=== PATIENT | female | born 2000 | race Caucasian/White ===

== ENCOUNTER → 2020-07-31 14:57 | Outpatient (BNVA) | payer OTHER, SELFPAY | PROVIDERS: Visit Provider Advanced Practice Midwife ==

== ENCOUNTER 2021-04-29 21:36 | Emergency (ER) | payer MEDICAID, SELFPAY ==
--- NOTE | ~2021-04-29 | XR_ITS ---
EXAMINATION: 1. RADIOGRAPHS RIGHT ANKLE 2. RADIOGRAPHS RIGHT FOOT CLINICAL INFORMATION: Pain after rolling ankle COMPARISON: None TECHNIQUE: 3 views of the right ankle and 3 views of the right foot were obtained. FINDINGS: Visualized portion of the distal tibia and fibula demonstrate no fracture. Ankle mortise is maintained. No focal soft tissue swelling of the ankle. No gross ankle joint effusion. Bones of the midfoot are well aligned. No tarsal, metatarsal or phalangeal fracture. No focal soft tissue swelling of the foot. No appreciable degenerative changes. XR/XR ankle RT min 3V IMPRESSION: Unremarkable radiographs of the right ankle and foot.
--- NOTE | ~2021-04-29 | XR_ITS ---
EXAMINATION: 1. RADIOGRAPHS RIGHT ANKLE 2. RADIOGRAPHS RIGHT FOOT CLINICAL INFORMATION: Pain after rolling ankle COMPARISON: None TECHNIQUE: 3 views of the right ankle and 3 views of the right foot were obtained. FINDINGS: Visualized portion of the distal tibia and fibula demonstrate no fracture. Ankle mortise is maintained. No focal soft tissue swelling of the ankle. No gross ankle joint effusion. Bones of the midfoot are well aligned. No tarsal, metatarsal or phalangeal fracture. No focal soft tissue swelling of the foot. No appreciable degenerative changes. XR/XR foot RT min 3V IMPRESSION: Unremarkable radiographs of the right ankle and foot.
[2021-04-29 22:02] VITALS: BP 130/78; PULSE 88; RESP 18; TEMP 36.4; O2SAT 99; BMI 26.5
[2021-04-29] MEDS: Ibuprofen 600 MG TABLET PO (22:38)
--- NOTE | 2021-04-29 23:04 | ED.LOWEXIN ---
HPI - Extremity Injury (Lower) General Chief Complaint: Extremity Injury, Lower Stated Complaint: broken foot? Time Seen by Provider: 04/29/21 22:45 Source: patient Mode of arrival: ambulatory Limitations: no limitations History of Present Illness HPI Narrative: 20 yold female presents to the ED for right ankle pain after running up a hill with his son and tripping. patient states when she twisted her right ankle she heard a pop. patient denies hitting head or falling to the ground. Related Data Previous Rx's Medication Instructions Recorded medroxyprogesterone 150 mg/mL 150 mg IM Q12W #1 ml 07/31/20 intramuscular suspension (Depo-Provera) naproxen 500 mg tablet 500 mg PO BID PRN 10 Days #20 tab 04/29/21 Allergies Allergy/AdvReac Type Severity Reaction Status Date / Time No Known Allergies Allergy Verified 07/31/20 14:58 [No Known Allergies*] Review of Systems Review of Systems: right ankle pain. Yes all other systems are reviewed and are negative [facility] Past Medical History Medical History Anemia Forgetfulness Family History Family History Mother No problems noted. Father No problems noted. Son History of bronchiolitis Lactose intolerance Anemia Social History Social History Advance Directives: No Advance Directives Information Provided: Yes Patient : No Physical Exam Vital Signs: Vital Signs: Last Vital Signs Temp 97.6 F 04/29/21 22:02 Pulse 88 04/29/21 22:02 Resp 18 04/29/21 22:02 BP 130/78 04/29/21 22:02 Pulse Ox 99 04/29/21 22:02 BMI result Body Mass Index 26.5 Const: General: cooperative, healthy appearing, comfortable, no acute distress, well developed, alert and awake Orientation/consciousness: patient oriented x3 HENMT: Head: Yes normal to inspection, Yes No palpable skull fracture present, Yes normocephalic, Yes atraumatic and No abrasion Eyes: General: appearance normal, both eyes and all related structures Neck: Neck: Yes normal visual inspection, Yes full ROM, Yes no lymphadenopathy, Yes no meningeal signs, Yes trachea midline, Yes supple, No anterior neck swelling and No tender Chest: Chest palpation & inspection: normal inspection of the chest and normal palpation of entire chest wall Resp: Effort & Inspection: normal respiratory effort and able to speak in complete sentences Auscultation: clear to auscultation bilaterally Cardio: Jugular venous distension: no JVD Heart sounds: S1 normal heart sound present and S2 normal heart sound present GI: Inspection: Yes normal to inspection and No abdominal wall ecchymosis Palpation (GI): Soft to palpation, not firm, nontender, no guarding and not rigid : General: No CVA tenderness and Yes no CVA tenderness Back/Spine/Pelvis: Back: no CVA tenderness, No CVA tenderness and No back tenderness Skin: General skin exam: no rashes or lesions noted and elasticity normal Neuro: General: patient oriented x3, gait normal, no meningeal signs and CN's II-XI intact bilaterally Cranial nerves: Yes CN's II-XII intact bilaterally Extrem: General: Yes normal to inspection and Yes full ROM Ankle/foot/toe images: 1. positive for tenderness on palpation. negative for ecchymosis, swelling, redness, crepitus, or deformities. Motor, neuro, and vascular exam is intact. Achilles is intact. Negative thombpson test. Psych: Appearance: grossly normal, well kempt and not disheveled Course Course Course Narrative: ANkle/foot xray ordered. Reevaluation(s) Reevaluation #1: Images normal. discharge with crutches, air cast, and brenda wrap. MDM - Extremity Injury (Lower) MDM Narrative Medical decision making narrative: Ankle sprain Discharge Plan Discharge Clinical Impression: Ankle sprain Patient Disposition: Home, Self-Care Instructions: Ankle Sprain (DC) Additional Instructions: The x-rays came back negative for fracture. If pain does not improve you will need MRI to make sure there is no ligament/tendon injury. Return to the ED immediately for redness, swelling, bluish black discoloration, hotness, coolness, fever, chills, worsening pain, or any other concerning symptoms. Recommend rest, elevation, and ice Prescriptions: New naproxen 500 mg tablet 500 mg PO BID PRN (Reason: pain) 10 Days Qty: 20 0RF No Action medroxyprogesterone [Depo-Provera] 150 mg/mL suspension 150 mg IM Q12W Qty: 1 5RF Referrals: Kristyn Kingsley PA-C [Physician Resource Program Teacher] - 2 days (Ankle Sprain.) Stand Alone Forms: Work/School Release Interventions: ED Discharge Assessment Last Done: 04/30/21 00:07 Discharge Date/Time: 04/30/21 00:09 Print Language: Arabic
== END 2021-04-30 00:09 | disposition home or self-care (01) ==
PROVIDERS: Emergency Provider Internal Medicine; PCP Nurse Practitioner Family
DX: S93.401A Sprain of unspecified ligament of right ankle, initial encounter (principal); X50.1XXA Overexertion from prolonged static or awkward postures, initial encounter; Y93.02 Activity, running; Y92.828 Other wilderness area as the place of occurrence of the external cause; Y99.9 Unspecified external cause status
CPT/HCPCS: 73610; 73630; 99283; 99284

== ENCOUNTER 2023-11-02 13:48 | Outpatient (REF) | payer MEDICAID, SELFPAY ==
[2023-11-02 16:03] LABS: MANUAL DIFF FLAG NO
[2023-11-02 16:24] LABS: Basophils Percent Auto 0.4 % (0-2); Eosinophils Percent Auto 0.4 % (0-4); Hemoglobin 9.2 g/dl (12.0-16.0); Imm Gran Abs Auto 0.01 X10*3/uL (0.00-0.03); Imm Gran Pct Auto 0.2 % (0.0-0.4); Lymphocytes Absolute Auto 1.2 X10*3/uL (1.2-4.9); Mean Corpuscular HGB Conc 30.7 g/dl (31.0-35.0); Mean Corpuscular Hemoglobin 23.7 pg (27.0-33.0); Mean Corpuscular Volume 77.1 fL (80.0-98.0); Mean Platelet Volume 11.2 fL (9.4-12.3); Monocytes Absolute Auto 0.4 X10*3/uL (0.1-1.2); Monocytes Percent Auto 7.5 % (2-11); Neutrophils Absolute Auto 3.4 x10*3/uL (2.0-8.3); Neutrophils Percent Auto 67.5 % (45-73); Platelet Count 294 X10*3/uL (160-400); Red Blood Count 3.89 X10*6/uL (4.20-5.50); Red Cell Distribution Width 15.8 % (11.0-16.0); White Blood Count 5.1 X10*3/uL (4.8-10.8)
[2023-11-02 16:53] LABS: Alanine Aminotransferase 14 U/L (0-31); Albumin Level 4.2 g/dL (3.5-5.0); Alkaline Phosphatase 106 U/L (39-117); Anion Gap 12 (12-20); Aspartate Amino Transferase 19 U/L (5-31); Bilirubin Total 0.2 mg/dL (0.0-1.0); Blood Urea Nitrogen 11 mg/dL (9-16); Calcium 8.9 mg/dL (8.4-10.2); Carbon Dioxide 23 mmol/L (22-29); Chloride 106 mmol/L (96-108); Cholesterol 153 mg/dL (<200); Estimated Glomerular Filt Rate > 60; Glucose Random 85 mg/dL (60-115); HDL Cholesterol 58 mg/dL (>40); Iron 18 mcg/dL (30-160); LDL Cholesterol Calculated 85 mg/dL (<100); Percent Iron Saturation 4 % (15-50); Potassium 3.4 mmol/L (3.3-5.1); Sodium 138 mmol/L (135-145); Total Iron Binding Capacity 409 mcg/dL (228-428); Total Protein 7.9 g/dL (6.5-8.0); Triglycerides 54 mg/dL (<150); Unsaturated Iron Binding 391 ug/dL
[2023-11-02 17:05] LABS: HCG Quantitative < 2 mIU/mL; TSH reflex Free T4 2.81 uIU/mL (0.32-4.0); Vitamin D 25-OH Total 28.2 ng/mL (>30)
[2023-11-02 17:12] LABS: Folate 7.1 ng/mL (> or = 4.0); Vitamin B12 630 pg/mL (200-900)
[2023-11-02 19:08] LABS: Reflex LDLD? No
[2023-11-03 08:12] LABS: HBS Num1 0.88 mIU/mL (0-7.99); HBc Num1 0.19 S/CO (0.00-0.79); HBsAGNum1 0.33 S/CO (0.00-0.99); HIV AB/AG Nonreactive (Nonreactive); HIV Num 1 0.07 S/CO (0.00-0.99); Hepatitis A Antibody IgM 0.31 Index (0-0.79); Hepatitis B Core Antibody Nonreactive (Nonreactive); Hepatitis B Surface Antigen Negative (Negative); ~Hepatitis A Antibody IgM Nonreactive (Nonreactive); ~Hepatitis B Surface Antibody NONREACTIVE (Nonreactive); ~Hepatitis C Antibody Reactive (Nonreactive)
[2023-11-03 12:23] LABS: RPR Rapid Plasma Reagin NON-REACTIVE (NON-REACTIVE)
== END 2023-11-02 13:49 | disposition home or self-care (01) ==
LOC: HO.HHCL 13:48
PROVIDERS: Visit Provider Internal Medicine
DX: Z11.4 Encounter for screening for human immunodeficiency virus [HIV] (principal); R53.1 Weakness; D50.9 Iron deficiency anemia, unspecified
CPT/HCPCS: 36415; 80053; 80061; 82306; 82607; 82746; 83540; 84443; 84702; 85025; 86592; 86704; 86706; 86709; 86803; 87340; 87389

== ENCOUNTER 2023-11-03 15:21 | Outpatient (REF) | payer MEDICAID, SELFPAY ==
[2023-11-05 10:28] LABS: HCV Log PCR <1.18 NOT DETECTED Log IU/mL (NOT DETECTED); HepC Viral Load <15 NOT DETECTED IU/mL (NOT DETECTED)
== END 2023-11-03 15:22 | disposition home or self-care (01) ==
LOC: HO.HHCL 15:21
PROVIDERS: Visit Provider Internal Medicine
DX: R76.8 Other specified abnormal immunological findings in serum (principal)
CPT/HCPCS: 36415; 87522

== ENCOUNTER 2024-01-11 11:13 | Outpatient (AMB) | payer MEDICAID, SELFPAY ==
[2024-01-11 11:19] VITALS: BP 116/62; BMI 27.8
--- NOTE | 2024-01-11 11:19 | MHC.OFFVIS ---
Vital Signs 01/11/24 11:19 Height 5 ft 2 in Weight 152 lb BMI 27.8 BP 116/62 Intake Visit Reasons: [employer] Metrorrhagia/PCP Ref Information Interpreted: clinical only Corrugated Sheet Material Sheeter: Corrugated Sheet Material Sheeter Present Allergies No Known Allergies [No Known Allergies*] Allergy (Verified 01/11/24 11:20) Medication List - Last Reconciled 01/11/24 by Maria Elena Mcclain CNM No Known Home Meds Is last menstrual period known: No (2 mth ago) HPI HPI [employer] Metrorrhagia/PCP Ref: Details: Chart states that is patient is here is a PCP referral but patient states she does not have a PCP and she went to urgent care when she is feeling dizzy and somebody referred her here but she did not know why or how or who. She says that they told her she was anemic and also that there was something about a false positive B and hep C tests. She brings her children to [facility] her mother drives her places when she needs to go places she lives in [place] with her 1-year-old daughter who she is still nursing and her 5-year-old son and she is also here today with her [id number]. She says that they told her to eat a little bit more meat for the anemia. She said she had her tubes moved after she gave of the daughter so she have anymore babies and ever since she has had that is surgery her periods have been very heavy and very painful and they last about 8 days but they come every other month she can always tell when they are coming because she gets cramps in her legs and upper thighs 1st but they come every other month. [facility] Medical History Forgetfulness Anemia Family History Mother No problems noted. Father No problems noted. Son History of bronchiolitis Lactose intolerance Anemia Female Reproductive History Menstrual Age of Menarche: 13 Duration of menses: 3-5 days control method: permanent sterilization Total pregnancies: 2 Full term: 2 Physical Exam Vital Signs: Last Vital Signs BP 116/62 01/11/24 11:19 BMI result Body Mass Index 27.8 Const Other: Patient declined exam today she does appear pale which is consistent with the anemia she is her baby with excellent technique her baby is almost year old. Assessment & Plan Assessment & Plan (1) Menorrhagia: Comment: Gets cycles every other month for 8 days very painful ever since tubes were removed about 1 year ago at [facility]. Code(s): N92.0 - Excessive and frequent menstruation with regular cycle Category: Medical (2) Secondary dysmenorrhea: Comment: Periods more painful ever since tubes were removed 1 year ago and periods are also every other month for 8 days. Code(s): N94.5 - Secondary dysmenorrhea Category: Medical (3) Patient is a currently breast-feeding mother: Comment: Nursing her almost 1-year-old daughter, with excellent technique. Code(s): Z39.1 - Encounter for care and examination of lactating mother Category: Medical (4) Status post surgical removal of both fallopian tubes: Comment: Had them removed after of 2nd child go at [facility] Code(s): Z90.79 - Acquired absence of other genital organ(s) Category: Surgical Plan Chart states that is patient is here is a PCP referral but patient states she does not have a PCP and she went to urgent care when she is feeling dizzy and somebody referred her here but she did not know why or how or who. She says that they told her she was anemic and also that there was something about a false positive B and hep C tests. She brings her children to [facility] her mother drives her places when she needs to go places she lives in [place] with her 1-year-old daughter who she is still nursing and her 5-year-old son and she is also here today with her [id number]. She says that they told her to eat a little bit more meat for the anemia. She said she had her tubes moved after she gave of the daughter so she have anymore babies and ever since she has had that is surgery her periods have been very heavy and very painful and they last about 8 days but they come every other month she can always tell when they are coming because she gets cramps in her legs and upper thighs 1st but they come every other month. Discussed plan I checked her H&H her last CBC indicated she was anemic with a hemoglobin 9 in October. I will order iron for her to take once a day since she is and not on vitamins I am ordering vitamins for her to take separately from the iron so that absorption is more spread out through day. We will discuss prevention of constipation as well Will get pelvic ultrasound to see if there is anything that could explain dysmenorrhea menorrhagia. Will have patient request records from [facility] of her and surgery visits and also we will schedule her for review of the ultrasound with her annual exam Pap smear coming. up. Congratulated on her nursing her baby is almost a year old. Discussed that it does seem unusual the periods should change after getting tubes cut and removed but I have heard of women experiencing changes to their menses before. She needs a primary care provider and I urged that she check either the bowling or skating front desk clerk cord downstairs at the [facility] and find out where she can sign up for primary care here since she would rather come here the [facility]. Orders: Orders US pelvic and transvaginal Today N92.0 - Excessive and frequent menstruation with regular cycle, N94.5 - Secondary dysmenorrhea, Z90.79 - Acquired absence of other genital organ(s) Medications: New ferrous sulfate Take 1 pill every day separate from vits. 324 mg PO DAILY 90 tabs 1RF PNV,calcium [id number]-[id number] acid 27 mg iron- 1 mg ( Vitamins Plus Low Iron) Take daily separate from the iron as long as you are 1 tab PO DAILY 90 tabs 4RF Coding Level of Care Code New Pt Level 3 (10011) Diagnoses Menorrhagia N92.0 Secondary dysmenorrhea N94.5 Patient is a currently breast-feeding mother Z39.1 Status post surgical removal of both fallopian tubes Z90.79 Time Spent (min) 40 Comment 25 minutes [id number] investigating history 15 minutes reviewing labs document
== END 2024-01-11 12:21 | disposition home or self-care (01) ==
LOC: HO.HWSM 11:14
PROVIDERS: PCP Nurse Practitioner Family; Visit Provider Advanced Practice Midwife
DX: N92.0 Excessive and frequent menstruation with regular cycle (principal); N94.5 Secondary dysmenorrhea; Z90.79 Acquired absence of other genital organ(s)
CPT/HCPCS: 99203

== ENCOUNTER → 2024-01-11 11:13 | Outpatient (BNVA) | payer MEDICAID, SELFPAY | PROVIDERS: PCP Nurse Practitioner Family; Visit Provider Advanced Practice Midwife | DX: Z39.1 Encounter for care and examination of lactating mother (principal); N92.0 Excessive and frequent menstruation with regular cycle; N94.5 Secondary dysmenorrhea; Z90.79 Acquired absence of other genital organ(s) | CPT/HCPCS: 99212 ==

== ENCOUNTER → 2024-08-22 10:17 | Outpatient (BNV) | payer MEDICAID, SELFPAY ==
--- NOTE | 2024-08-22 10:17 | A.OFFVIS_ITS ---
Intake Visit Reasons: Amb Documentation Allergies No Known Allergies [No Known Allergies*] Allergy (Verified 01/11/24 11:20) HPI Comments Details: student brought to me after missing school for numbness in her legs and some question (from her) that she was at risk for blood clots after her delivery (c/s) was told she should be moving. baby is a year old (2 children a 5 year old boy and a 1 year old girl). She is brought to me to discuss the series of e vents and to comb out what is happening if needs referral to pcp or ER. she states that a week ago - she woke up from a very sound sleep went to get up and she immediately fell because her right leg was entirely numb not pins and needles but no feeling at all .(bilateral upper extremeties were fine) she states that it lasted for 1.5 -2 hours and she got herself up to the bed and laid in bed until it resolved - then she noted that her ankle hurt. she surmised that when she got up and attempted to bear weight she fell and sprained in in the process -she had missed school because of this. Today (a week later) she feels fine and wouldn't have come to me except her counselor insisted. She states that she sees gallito rolon - and when I clarified that this is a back maker she states that she doesn't have PCP. she used to go to [facility] (my paper records indicate that she used to go to [facility] - but she states [facility] and she doesn't know who she saw over there - nor how long ago it was). This chart states that it was Sheila Moreno - but I don't know if she actually connected w/ her after Martha Kala worked to get her connected to pcp almost a year ago at this last visit. she states that her symptoms have completely resolved and though her ankle hurts now and then she doesn't feel like having me examine it. If I'm able to move around and go up and down stairs - I don't think theres a problem . when asked why she didn't go to [facility] with such a worriesome symptoms she stated that she feels VERY uncomfortable with medical settings and doctors and also has a 1 and 5 year old that she can't just leave (later she states that her mother told her to go to [facility] and lives downstairs and would watch children for her)- so I clarified w/ her that her anxiety aobut her children has to do wtih fear that there is something REALLY wrong and she can't cope w/ how it would interfere with her life. She admits a lot of anxiety. Her primary worry that caused her NOT to follow up on this had to do with Hep B - she got some upsetting news from back maker that she had Hep B - but then they 'had to do a follow up test and when I called back they couldn't find the results -so she googled this and is worried that it came from previous partner - no sex in a year - but also worries about what it means for her health. (reassured her during visit and after visit looked up labs and reconnected to discuss further to clarify exposure but no infection) Discussed the heaviness of sleep to numb ones entire leg for 2 hours - denies anything other than vaping cannabis before sleep - denies that the cannabis had any other drug in it. She denies any other substance use before sleep that night. I will monitor this concern a bit further while she is a student in this program and talk to her onsite counselor about it PLAN 1) Janet Jean-Paul her onsite counselor will help her sit and find out who her primary is and give her a number to call. She is 24 years old and while we recommend she go for follow up on this issue - she will make decision about the appointment - keeping conversation open aobut her health even if she fails to complete appointment because I would like her to minimally talk to me if the symptoms come up again. 2) janet states that another symptom she had last week was being super dizzy and feeling like she was going to pass out. I discussed concern about other substance use. Client denies - but we will keep an eye out for this concern 3) anxiety is very high - though she appears calm - she seems to function from anxiety and this needs further exploration - Janet will work on their relationship and see how this plays out. 4) reviewed chart and informed student that HCV test was reactive but viral load negative - antibodies, but not infected. reassured that this might have come about in other ways that her most recent sexual partner - but her concerns about sex partner may need further exploration. and discussion about safe sex practices and explore if she has anxiety about this area [facility] Medical History (Updated 08/22/24 @ 10:42 by ASIM Vila) Forgetfulness Anemia Surgical History (Updated 08/22/24 @ 10:42 by ASIM Vila) History of bilateral tubal ligation History of Family History Mother No problems noted. Father No problems noted. Son History of bronchiolitis Lactose intolerance Anemia Female Reproductive History Menstrual Age of Menarche: 13 Review of Systems Const All systems reviewed & are unremarkable except as noted in HPI and below Reports as per HPI Resp Reports as per HPI GI Reports as per HPI Musc Reports as per HPI Neuro Reports as per HPI Psych Reports as per HPI Physical Exam Const General: cooperative, healthy appearing and no acute distress Nutritional Appearance: well nourished Orientation/consciousness: patient oriented x3 Limitations: no limitations HEENT Other: wnl Eyes Other: wnl Chest Other: easy breathing Resp Effort & Inspection: able to speak in complete sentences Skin Other: normal in appearance Neuro Other: no deficits noted General: patient oriented x3 and gait normal Extrem Other: walking quite well - able to step over obstacle without support - no limp, no discomfort noted - visibl part of ankle (refuses exam) is fine - no swelling. but she is able to bear weight on one leg (both legs separately) Psych Other: see HPI Mental Status: mental status grossly normal Speech and movement: Clear speech present Attitude: cooperative Thought process: Normal thought process present Assessment & Plan Assessment & Plan (1) Numbness of right lower extremity: Code(s): R20.0 - Anesthesia of skin Category: Medical (2) Counseling and coordination of care: Code(s): Z71.89 - Other specified counseling Category: Medical (3) control counseling: Comment: permanent sterilization in place Code(s): Z30.09 - Encounter for other general counseling and advice on contraception Category: Medical Plan PLAN 1) Janet Jeong her onsite counselor will help her sit and find out who her primary is and give her a number to call. She is 24 years old and while we recommend she go for follow up on this issue - she will make decision about the appointment - keeping conversation open aobut her health even if she fails to complete appointment because I would like her to minimally talk to me if the symptoms come up again. 2) janet states that another symptom she had last week was being super dizzy and feeling like she was going to pass out. I discussed concern about other substance use. Client denies - but we will keep an eye out for this concern 3) anxiety is very high - though she appears calm - she seems to function from anxiety and this needs further exploration - Janet will work on their relationship and see how this plays out. 4) reviewed chart and informed student that HCV test was reactive but viral load negative - antibodies, but not infected. reassured that this might have come about in other ways that her most recent sexual partner - but her concerns about sex partner may need further exploration. and discussion about safe sex practices and explore if she has anxiety about this area Coding Level of Care Code Est Pt Level 5 (28812) Diagnoses Numbness of right lower extremity R20.0 Counseling and coordination of care Z71.89 control counseling Z30.09 Time Spent (min) 60 Comment extensive counseling and coordination of care
== END ==
PROVIDERS: PCP Nurse Practitioner Family; Visit Provider Nurse Practitioner Family
DX: R20.0 Anesthesia of skin (principal); Z71.89 Other specified counseling; Z30.09 Encounter for other general counseling and advice on contraception
CPT/HCPCS: 99215

== ENCOUNTER 2024-08-23 14:53 | Outpatient (AMB) | payer MEDICAID, SELFPAY ==
[2024-08-23 14:53] VITALS: BMI 27.8
--- NOTE | 2024-08-23 14:53 | A.OFFVIS_ITS ---
Vital Signs 08/23/24 14:53 Height 5 ft 2 in Weight 152 lb BMI 27.8 Intake Visit Reasons: Labs results Pharmacy Graduate Intern Required: No Information Interpreted: non-clinical & clinical Accompanied by: Self / Same As Patient Allergies No Known Allergies [No Known Allergies*] Allergy (Verified 08/23/24 14:53) HPI Comments Details: Presenting after a positive hep C BV antibody positive in October 2023. 11/04/2023 hepatitis-C antibody reactive, hepatitis-C RNA negative The patient gives no history of any signs and symptoms of hepatitis no new exposure or past exposure or no previous diagnose or treatment of hepatitis-C that the patient is aware of [facility] Medical History Forgetfulness Anemia Surgical History History of bilateral tubal ligation History of Family History Mother No problems noted. Father No problems noted. Son History of bronchiolitis Lactose intolerance Anemia Female Reproductive History Menstrual Age of Menarche: 13 Physical Exam Vital Signs: BMI result Body Mass Index 27.8 Assessment & Plan Assessment & Plan (1) Hepatitis C antibody positive: Code(s): R76.8 - Other specified abnormal immunological findings in serum Category: Medical Plan: Discussed with the patient the results of the hepatitis C antibody positive, differential diagnosis could be false-positive or prior cleared HCV infection since there is no history of diagnosis or treatment. Will repeat HCV antibody with reflex HCV RNA titer. Instructions given the patient to have her blood drawn and schedule a follow-up appointment within 2 weeks Orders: Orders Hepatitis C Antibody Reflex Today R76.8 - Other specified abnormal immuno logical findings in serum Coding Level of Care Code Est Pt Level 3 (67921) Diagnoses Hepatitis C antibody positive R76.8
--- OUTSIDE RECORDS SUMMARY | 2024-08-23 17:05 | XMS_ITS | Clinical Summary ---
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 Name Role Phone Unavailable Primary Care Provider Unavailabl e Immunizations Immunization Administration Dates Next Due DTaP 5 03/25/2005, 2,2000,10/27,2000 HPV, Quadrivalent 05/23/2014,05/23/2013,12/02/19 12 Hep A, ped/adol 10/28/2016,05/23/2014 Hep B, ped/adol 12/07/2001,2000,2000 Hib (PRP-T) 09/14/2001, 1,2000,08/18 IPV 03/25/2005, 2,2000,08/18 Influenza Split 12/02/2011 Influenza, injectable, quadrivalent 05/23/2014 Influenza, injectable, quadr ivalent, preservative free 05/23/2013 Influenza, injectable, trivalent 11/28/2008 MMR 03/25/2005,09/14/2001 Meningococcal Conj (Menactra) MCV4P 10/28/2016,0 12/02/2011 Pneumococcal Conjugate 2000,2000,08/2000 Tdap 12/02/2011 Varicella 11/28/2008,09/14/2001 Family History Relation Name Status Comments Brother Alive Brother: Alive and well, Healthy, Asthma Father Alive Father: Healthy Maternal Grandfather Alive Materna l grandfather: cancer Mother Alive Mother: Healthy Other No family histo ry of Stroke, Family history of Asthma, Family history of ADD/ADHD, No family history of Heart disease, Family history of Strabismus, No family history of Obesity, No family history of Sudden , No family history of Migraines, No family history of Deafness, Family history of Seizure disorder, Social History Tobacco Use Types Packs/Day Years Used Date Smoking Tobacco: Never Comments:Never smoker Comments Yes Sex and Gender Information Value Date Recorded Sex Assigned at Not on file Legal Sex Female 4:55 PM EDT Gender Identity Not on file Sexual Orientation Not on file Last Filed Vital Signs Vital Sign Reading Time Taken Comments Blood Pressure 114/71 10/28/2016 12:00 AM EDT Pulse 59 10/28/2016 12:00 AM EDT Temperature 37.1 ??C (98.7 ??F) 08/26/2016 12:00 AM E DT Respiratory Rate - - Oxygen Saturation - - Inhaled Oxygen Concentration - - Weight 55.3 kg (122 lb) 10/28/2016 12:00 AM EDT Height 154.9 cm (5' 1 ) 10/28/2016 12:00 AM EDT Body Mass Index 23.05 10/28/2016 12:00 AM EDT Plan of Treatment Health Maintenance Due Date Last Done Comments DTaP,Tdap,and Td Vaccines (7 - Td or Tdap) 12/01/2021 12/02/2011, 03/25/2005, 12/07/2001, Additional history exists Influenza Vaccines (#1) 2023 05/24/19, 05/23/2013, 12/02/2011, Additional history exists COVID-19 Vaccine ( season) 2023 Pneumococcal Vaccine Aged Out 2000, 2000, 2000 No longer eligible based on patient's age to complete this topic HIB Vaccines Completed 09/14/2001, 12/13, 2000, Additional history exists Hepatitis B Vaccines Completed 12/07/2001, 2000, 2000 IPV Vaccines Completed 03/25/2005, 05/2001, 2000, Additional history exists MMR Vaccines Completed 03/25/2005, 09/14/2001 Varicella Vaccines Completed 11/28/2008, 09/14/2001 HPV Vaccines Completed 05/23/2014, 05/13, 12/02/2011 Hepatitis A Vaccines Completed 10/28/2016, 05/24/19 Meningococcal Vaccine Completed 10/28/2016, 012 Men B Vaccine Aged Out No longer elig ibjose based on patient's age to complete this topic Procedures * Due to [place] [employer] law, this organization might not be sharing sensitive test results. Procedure Name Priority Date/Time Associated Diagnosis Comments CHLAMYDIA AND GONORRHEA, AMPLIFIED Routine 10/29/2016 1:59 PM EDT from Last 3 Months or Most Recently Relevant to Health Maintenance Results * Due to [place] [employer] law, this organization might not be sharing sensitive test results. * Chlamydia and Gonorrhoea, Amplified (10/29/2016 1:59 PM EDT) URINE GC AMP PROBE NEGATIVE (NEG) F [facility] Comment: No Neisseria Gonorrhoeae RNA detected in this patient's sample (REFERENCE RANGE/NORMAL VALUE: NOT DETECTED) NOTE: This test uses children's tutor nursery-mediated amplification method to detect rRNA from C.Trachomatis and N.Gonorrhoeae. A negative result does not preclude infection. In the case of a negative urine result, testing of an endocervical(female) or urethral(male) specimen is recommended if there is high clinical suspicion of infection. Due to very high sensitivity of Nucleic Acid Amplification Test, false positive results may occur. Therefore, specimen handling is extremely important. In patients in whom the disease is unlikely, additional sample for testing should be considered after an initial positive result. The performance characteristics of this test have not been evaluated in children. The Aptima Combo2 assay is not intended for the evaluation of suspected sexual abuse or for other medico-legal indications. The ordering provider should assess if the patient had consensual sex without risk of sexual abuse. Consult the [facility] if needed. Contact phone number . Therapeutic failure or success cannot be determined with the Aptima Combo2 assay since nucleic acid may persist following appropriate antimicrobial therapy. The Centers for Disease Control and Prevention (CDC) recommends confirmatory retesting using culture or a different nucleic acid amplification test when positive results occur, if indicated. Testing performed or reported by [facility], a Service of [facility], [facility] [place] [address] CLIA ??[id number] Arden Wright MD, PhD, Geospatial Imagery Intelligence Analyst URINE CHLAMYDIA AMP PROBE NEGATIVE (NEG) [facility] Comment: No Chlamydia Trachomatis RNA detected in this patient's sample (REFERENCE RANGE/NORMAL VALUE: NOT DETECTED) 10/29/2016 1:59 PM EDT Narrative [facility] - 10/29/2016 1:59 PM EDT URINE CHLAMYDIA GC AMP PROBE us Allegra Moreno NP LAB MICROBIOLOGY - GENERAL OR DERABLES Final Result [facility] [address] [id number], from Last 3 Months or Most Recently Relevant to Health Maintenance Insurance [facility] NON PCC "
== END 2024-08-23 15:25 | disposition home or self-care (01) ==
LOC: HO.HWS 14:53
PROVIDERS: PCP Nurse Practitioner Family; Visit Provider Obstetrics & Gynecology
DX: R76.8 Other specified abnormal immunological findings in serum (principal)
CPT/HCPCS: 99213

== ENCOUNTER → 2024-08-23 14:53 | Outpatient (BNVA) | payer MEDICAID, SELFPAY | PROVIDERS: PCP Nurse Practitioner Family; Visit Provider Obstetrics & Gynecology | DX: R76.8 Other specified abnormal immunological findings in serum (principal) | CPT/HCPCS: 99212 ==